=== PATIENT | female | born 1980 ===

== ENCOUNTER → 2018-05-07 21:59 | Outpatient (REF) | payer OTHER, MEDICAID, SELFPAY ==
[2018-05-07 22:25] LABS: Add Manual Diff / Slide Review NO; Basophils Percent Auto 0.7 % (0-2); Eosinophils Percent Auto 1.2 % (2-4); Hematocrit 33.6 % (36-46); Hemoglobin 11.1 g/dL (12.0-16.0); Lymphocytes Percent Auto 29.4 % (25-40); Mean Corpuscular HGB Conc 33.2 % (30-36); Mean Corpuscular Volume 78.5 fL (80-100); Monocytes Percent Auto 7.8 % (3-14); Neutrophils Absolute Auto 4700 /uL (1500-7000); Neutrophils Percent Auto 60.9 % (50-75); Platelet Count 264 X10^3/uL (150-400); Red Blood Cell Count 4.28 X10^6/uL (4.0-5.2); Red Cell Distribution Width 14.8 % (11.6-14.8); White Blood Cell Count 7.8 X10^3/uL (4.5-11.0)
[2018-05-09 13:36] LABS: EBV Virus IgM Ab < 36.00 U/mL (< 36.00)
== END ==
LOC: LAB 21:59
PROVIDERS: Visit Provider Naturopath
DX: R53.82 Chronic fatigue, unspecified (principal)
CPT/HCPCS: 36415; 85025; 86663; 86664; 86665